=== PATIENT | female | born 1930 | race Caucasian/White ===

== ENCOUNTER → 2016-08-02 | Outpatient (CLI) | payer OTHER, MEDICARE | LOC: HYPER 07:11 | DX: S81.801A Unspecified open wound, right lower leg, initial encounter (principal); S91.002A Unspecified open wound, left ankle, initial encounter; I10 Essential (primary) hypertension; K21.9 Gastro-esophageal reflux disease without esophagitis; M19.90 Unspecified osteoarthritis, unspecified site; X58.XXXA Exposure to other specified factors, initial encounter; Y93.89 Activity, other specified; Y99.8 Other external cause status; Y92.89 Other specified places as the place of occurrence of the external cause ==

== ENCOUNTER → 2016-08-13 | Outpatient (CLI) | payer OTHER, MEDICARE | LOC: HYPER 07:28 | DX: S91.002D Unspecified open wound, left ankle, subsequent encounter (principal); S91.001D Unspecified open wound, right ankle, subsequent encounter; I10 Essential (primary) hypertension; K21.9 Gastro-esophageal reflux disease without esophagitis; M19.90 Unspecified osteoarthritis, unspecified site; X58.XXXD Exposure to other specified factors, subsequent encounter ==

== ENCOUNTER → 2016-08-28 | Outpatient (CLI) | payer OTHER, MEDICARE | LOC: HYPER 07:10 | DX: S81.801D Unspecified open wound, right lower leg, subsequent encounter (principal); S91.002D Unspecified open wound, left ankle, subsequent encounter; I10 Essential (primary) hypertension; H26.9 Unspecified cataract; K21.9 Gastro-esophageal reflux disease without esophagitis; M19.90 Unspecified osteoarthritis, unspecified site; Z98.49 Cataract extraction status, unspecified eye; X58.XXXD Exposure to other specified factors, subsequent encounter ==

== ENCOUNTER → 2016-09-12 | Outpatient (CLI) | payer OTHER, MEDICARE | LOC: HYPER 06:57 | DX: S91.002D Unspecified open wound, left ankle, subsequent encounter (principal); S91.001D Unspecified open wound, right ankle, subsequent encounter; S80.12XD Contusion of left lower leg, subsequent encounter; S80.11XD Contusion of right lower leg, subsequent encounter; I10 Essential (primary) hypertension; K21.9 Gastro-esophageal reflux disease without esophagitis; M19.90 Unspecified osteoarthritis, unspecified site; X58.XXXD Exposure to other specified factors, subsequent encounter ==

== ENCOUNTER → 2016-10-01 | Outpatient (CLI) | payer OTHER, MEDICARE | LOC: HYPER 07:03 | DX: S91.002D Unspecified open wound, left ankle, subsequent encounter (principal); S91.001D Unspecified open wound, right ankle, subsequent encounter; I10 Essential (primary) hypertension; H26.9 Unspecified cataract; K21.9 Gastro-esophageal reflux disease without esophagitis; M19.90 Unspecified osteoarthritis, unspecified site; Z98.49 Cataract extraction status, unspecified eye; V49.9XXD Car occupant (driver) (passenger) injured in unspecified traffic accident, subsequent encounter ==

== ENCOUNTER → 2016-10-17 | Outpatient (CLI) | payer OTHER, MEDICARE | LOC: HYPER 07:01 | DX: L97.812 Non-pressure chronic ulcer of other part of right lower leg with fat layer exposed (principal); S91.002D Unspecified open wound, left ankle, subsequent encounter; I10 Essential (primary) hypertension; K21.9 Gastro-esophageal reflux disease without esophagitis; M19.90 Unspecified osteoarthritis, unspecified site; X58.XXXD Exposure to other specified factors, subsequent encounter ==

== ENCOUNTER → 2016-10-24 | Outpatient (CLI) | payer OTHER, MEDICARE | LOC: HYPER 06:54 | DX: L97.812 Non-pressure chronic ulcer of other part of right lower leg with fat layer exposed (principal); S91.002D Unspecified open wound, left ankle, subsequent encounter; I10 Essential (primary) hypertension; K21.9 Gastro-esophageal reflux disease without esophagitis; M19.90 Unspecified osteoarthritis, unspecified site; X58.XXXD Exposure to other specified factors, subsequent encounter ==

== ENCOUNTER → 2016-11-01 | Outpatient (CLI) | payer OTHER, MEDICARE | LOC: HYPER 06:57 | DX: L97.812 Non-pressure chronic ulcer of other part of right lower leg with fat layer exposed (principal); I10 Essential (primary) hypertension; K21.9 Gastro-esophageal reflux disease without esophagitis; M19.90 Unspecified osteoarthritis, unspecified site ==

== ENCOUNTER → 2016-11-07 | Outpatient (CLI) | payer OTHER, MEDICARE | LOC: HYPER 06:51 | DX: L97.812 Non-pressure chronic ulcer of other part of right lower leg with fat layer exposed (principal); I10 Essential (primary) hypertension; H26.9 Unspecified cataract; K21.9 Gastro-esophageal reflux disease without esophagitis; M19.90 Unspecified osteoarthritis, unspecified site; Z98.49 Cataract extraction status, unspecified eye ==

== ENCOUNTER → 2016-11-14 | Outpatient (CLI) | payer OTHER, MEDICARE | LOC: HYPER 06:47 | DX: L97.812 Non-pressure chronic ulcer of other part of right lower leg with fat layer exposed (principal); I10 Essential (primary) hypertension; H26.9 Unspecified cataract; K21.9 Gastro-esophageal reflux disease without esophagitis; M19.90 Unspecified osteoarthritis, unspecified site; Z98.49 Cataract extraction status, unspecified eye ==

== ENCOUNTER → 2016-11-28 | Outpatient (CLI) | payer OTHER, MEDICARE | LOC: RAD 09-11 13:16 | DX: Z12.31 Encounter for screening mammogram for malignant neoplasm of breast (principal) ==

== ENCOUNTER → 2017-12-02 | Outpatient (CLI) | payer OTHER, MEDICARE | LOC: RAD 01:44 | DX: Z12.31 Encounter for screening mammogram for malignant neoplasm of breast (principal) ==